=== PATIENT | female | born 1980 | race Hispanic/Latino ===

== ENCOUNTER 2018-05-27 23:34 | Emergency (ER) | payer SELFPAY ==
[2018-05-28 00:40] LABS: Urine Blood 3+ (NEG); Urine Glucose NEGATIVE (NEG); Urine Protein NEGATIVE (NEG); Urine Specific Gravity >1.030 (1.005-1.030)
[2018-05-28] MEDS ORDERED: MORPHINE 4 MG/ML SYR ONE ×2 (00:41→06:03)
[2018-05-28] MEDS ORDERED: ONDANSETRON 4 MG/2 ML VIAL ONE ×2 (00:42→06:03)
[2018-05-28] MEDS ORDERED: NA CHLORIDE 0.9% 1,000 ML ONE (00:42)
[2018-05-28 00:44] LABS: Absolute Lymphocytes (CBC) 0.8 K/uL (0.7-4.9); Absolute Monocytes 0.6 K/uL (0.1-1.3); Absolute Neutrophil 3.8 K/uL (1.8-8.0); Basophils % 0.7 % (0-1.3); Eosinophils % 1.8 % (0-4.4); Lymphocytes % 15.4 % (15.3-44.8); MCH 27.5 pg (27.0-35.0); MCV 83.8 fL (80-100); Monocytes % 10.6 % (3.3-12.3); RBC Red Blood Cell Count 4.54 M/uL (3.86-4.86)
[2018-05-28 00:47] LABS: Protime INR 0.97
[2018-05-28 01:02] LABS: ALT/SGPT 52 U/L (12-78); AST/SGOT 31 U/L (15-37); Albumin 2.9 g/dL (3.4-5.0); Alkaline Phosphatase 119 U/L (45-117); Amylase Level 49 U/L (25-115); BUN Blood Urea Nitrogen 15 mg/dL (7-18); Bicarbonate 22 mmol/L (21-32); Bilirubin Direct < 0.1 mg/dL (0-0.2); Bilirubin Total 0.3 mg/dL (0.2-1.0); CKMB Creatine Kinase MB 1.5 ng/mL (0.3-3.6); Creatine Phosphokinase 139 U/L (26-192); Glucose Level 119 mg/dL (74-106); Lipase 199 U/L (73-393); Magnesium 1.9 mg/dL (1.8-2.4); NT PRO-BNP 35 pg/mL (<125); Potassium 3.7 mmol/L (3.5-5.1); Protein, Total 6.8 g/dL (6.4-8.2); Sodium Level 143 mmol/L (136-145)
--- NOTE | 2018-05-28 05:29 | EDPHYS ---
Physician Documentation [facility] Name: Rosette Alfaro Age: 38 yrs Sex: Female : 1980 Arrival Date: 05/27/2018 Time: 23:35 Bed 8 Private MD: ED Physician Tommie Kearns HPI: 05/28 00:17 This 38 yrs old Female presents to ER via Ambulatory with complaints of Flank pkl Pain. 00:17 The patient presents with abdominal pain in the right upper quadrant. Onset: The pkl symptoms/episode began/occurred today. The symptoms radiate to the right shoulder. Associated signs and symptoms: none. 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 - Social history:: Smoking status: Patient/guardian denies using tobacco. - Ebola Screening: : Patient negative for fever greater than or equal to 101.5 degrees Fahrenheit, and additional compatible Ebola Virus Disease symptoms Patient denies exposure to infectious person Patient denies travel to an Ebola-affected area in the 21 days before illness onset No symptoms or risks identified at this time. ROS: 05/28 00:17 Eyes: Negative for injury, pain, redness, and discharge, ENT: Negative for injury, pkl pain, and discharge, Neck: Negative for injury, pain, and swelling, Cardiovascular: Negative for chest pain, palpitations, and edema, Respiratory: Negative for shortness of breath, cough, wheezing, and pleuritic chest pain. Abdomen/GI: Positive for abdominal pain, of the right upper quadrant. Back: Negative for acute changes. : Negative for urinary symptoms. MS/extremity: Negative for acute changes. Skin: Negative for rash. Neuro: Negative for altered mental status. Exam: 00:17 Head/Face: Normocephalic, atraumatic. Eyes: Pupils equal round and reactive to light, pkl extra-ocular motions intact. Lids and lashes normal. Conjunctiva and sclera are non-icteric and not injected. Cornea within normal limits. Periorbital areas with no swelling, redness, or edema. ENT: Nares patent. No nasal discharge, no septal abnormalities noted. Tympanic membranes are normal and external auditory canals are clear. Oropharynx with no redness, swelling, or masses, exudates, or evidence of obstruction, uvula midline. Mucous membranes moist. Neck: Trachea midline, no thyromegaly or masses palpated, and no cervical lymphadenopathy. Supple, full range of motion without nuchal rigidity, or vertebral point tenderness. No Meningismus. Chest/axilla: Normal chest wall appearance and motion. Nontender with no deformity. No lesions are appreciated. Cardiovascular: Regular rate and rhythm with a normal S1 and S2. No gallops, murmurs, or rubs. Normal PMI, no JVD. No pulse deficits. Respiratory: Lungs have equal breath sounds bilaterally, clear to auscultation and percussion. No rales, rhonchi or wheezes noted. No increased work of breathing, no retractions or nasal flaring. 00:17 Abdomen/GI: Bowel sounds: normal, Palpation: soft, moderate abdominal tenderness, in the right upper quadrant. 00:17 Back: Exam negative for acute changes. 00:17 : Exam negative for acute changes. 00:17 Musculoskeletal/extremity: Exam is negative for acute changes. 00:17 Skin: Exam negative for rash. 00:17 Neuro: Orientation: is normal, Mentation: is normal, Cranial nerves: grossly normal, Motor: is normal. Vital Signs: 05/27 23:56 BP 149 / 71; Pulse 85; Resp 20; Temp 98.1; Pulse Ox 98% ; Weight 122.47 kg; Height 5 bp ft. 1 in. (154.94 cm); 05/28 01:00 BP 132 / 67; Pulse 82; Resp 14; Pulse Ox 97% ; bp 02:00 BP 134 / 73; Pulse 83; Resp 14; Pulse Ox 94% ; bp 04:00 BP 118 / 70; Pulse 74; Resp 14; Pulse Ox 95% ; bp 05/27 23:56 Body Mass Index 51.02 (122.47 kg, 154.94 cm) bp MDM: 05/27 23:54 Patient medically screened. pkl 05/28 05:27 Data reviewed: vital signs, nurses notes, lab test result(s), EKG, radiologic studies, pkl CT scan, plain films. 05:29 Patient medically screened. pkl 05/27 23:58 Order name: Urine Dipstick--Ancillary (enter results); Complete Time: 00:48 ms 05/27 23:58 Order name: Urine --Ancillary (enter results); Complete Time: 00:48 ms 05/28 00:10 Order name: Basic Metabolic Panel; Complete Time: 01:02 bp 05/28 00:10 Order name: CBC with Diff; Complete Time: 00:48 bp 05/28 00:10 Order name: Ckmb; Complete Time: 01:02 bp 05/28 00:10 Order name: CPK; Complete Time: 01:02 bp 05/28 00:10 Order name: LFT's; Complete Time: 01:02 bp 05/28 00:10 Order name: Magnesium; Complete Time: 01:02 bp 05/28 00:10 Order name: NT PRO-BNP; Complete Time: 01:02 bp 05/28 00:10 Order name: PT-INR; Complete Time: 00:51 bp 05/28 00:10 Order name: Ptt, Activated; Complete Time: 00:51 bp 05/28 00:10 Order name: Troponin (emerg Dept Use Only); Complete Time: 01:31 bp 05/28 00:10 Order name: Amylase, Serum; Complete Time: 01:02 bp 05/28 00:10 Order name: Lipase; Complete Time: 01:02 bp 05/28 00:10 Order name: Urine Test (obtain specimen); Complete Time: 00:11 bp 05/28 00:10 Order name: XRAY Chest (1 view) bp 05/28 00:10 Order name: EKG; Complete Time: 00:11 bp 05/28 00:10 Order name: Cardiac monitoring; Complete Time: 00:10 bp 05/28 00:10 Order name: EKG - Nurse/Tech; Complete Time: 00:30 bp 05/28 00:10 Order name: IV Saline Lock; Complete Time: 00:30 bp 05/28 00:10 Order name: Labs collected and sent; Complete Time: 00:30 bp 05/28 00:10 Order name: O2 Per Protocol; Complete Time: 00:10 bp 05/28 00:10 Order name: O2 Sat Monitoring; Complete Time: 00:11 bp 05/28 00:10 Order name: Urine Dipstick-Ancillary (obtain specimen); Complete Time: 00:11 bp 05/28 01:04 Order name: CT Abd/Pelvis - W/Contrast pkl Administered Medications: 00:43 Drug: NS 0.9% 1000 ml Route: IV; Rate: 125 ml/hr; Site: right forearm; bp 06:07 Follow up: IV Status: Completed infusion; IV Intake: 1000ml bp 00:43 Drug: morphine 4 mg Route: IVP; Site: right forearm; bp 01:49 Follow up: Response: Pain is decreased bp 00:43 Drug: Zofran 4 mg Route: IVP; Site: right forearm; bp 01:49 Follow up: Response: No adverse reaction bp 05:45 Drug: morphine 4 mg Route: IVP; Site: right forearm; bp 06:06 Follow up: Response: No adverse reaction; Pain is decreased bp 05:45 Drug: Zofran 4 mg Route: IVP; Site: right forearm; bp 06:06 Follow up: Response: No adverse reaction; Pain is decreased bp Disposition: 05/28/18 05:29 Discharged to Home. Impression: Chest pain. Right upper quadrant pain. - Condition is Stable. - Prescriptions for Ultram 50 mg Oral Tablet - take 1 tablet by ORAL route every 8 hours As needed; 30 tablet. - Work release form, Medication Reconciliation Form, Thank You Letter, Antibiotic Education, Prescription Opioid Use form. - Follow up: Private Physician; When: 2 - 3 days; Reason: Re-evaluation by your physician. - Problem is new. - Symptoms have improved. Signatures: Dispatcher [employer] EDTommie Tobias MD MD pkl Oren Garcia, RN RN bp Corrections: (The following items were deleted from the chart) 06:09 05:29 05/28/2018 05:29 Discharged to Home. Impression: Chest pain. Right upper quadrant bp pain. Condition is Stable. Forms are Medication Reconciliation Form, Thank You Letter, Antibiotic Education, Prescription Opioid Use. Follow up: Private Physician; When: 2 - 3 days; Reason: Re-evaluation by your physician. Problem is new. Symptoms have improved. pkl
--- NOTE | 2018-05-28 05:29 | ER ---
Nurse's Notes [facility] Name: Rosette Alfaro Age: 38 yrs Sex: Female : 1980 Arrival Date: 05/27/2018 Time: 23:35 Bed 8 Private MD: Diagnosis: Chest pain. Right upper quadrant pain Presentation: 05/27 23:50 Presenting complaint: Patient states: I HAVE THIS PAIN UNDER MY RIGHT BREAST. bp Transition of care: patient was not received from another setting of care. Onset of symptoms was May 27, 2018 at 15:00. Risk Assessment: Do you want to hurt yourself or someone else? Patient reports no desire to harm self or others. Initial Sepsis Screen: Does the patient meet any 2 criteria? No. Patient's initial sepsis screen is negative. Does the patient have a suspected source of infection? No. Patient's initial sepsis screen is negative. Care prior to arrival: None. 23:50 Method Of Arrival: Ambulatory bp 23:50 Acuity: BIGG 3 bp Triage Assessment: 23:56 General: Appears in no apparent distress. uncomfortable, obese, Behavior is calm, bp cooperative, appropriate for age. Pain: Complains of pain in right breast. 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 - Social history:: Smoking status: Patient/guardian denies using tobacco. - Ebola Screening: : Patient negative for fever greater than or equal to 101.5 degrees Fahrenheit, and additional compatible Ebola Virus Disease symptoms Patient denies exposure to infectious person Patient denies travel to an Ebola-affected area in the 21 days before illness onset No symptoms or risks identified at this time. Screenin:57 Abuse screen: Denies threats or abuse. Denies injuries from another. Nutritional bp screening: No deficits noted. Tuberculosis screening: No symptoms or risk factors identified. Fall Risk None identified. Assessment: 23:58 General: Appears in no apparent distress. uncomfortable, Behavior is calm, cooperative, bp appropriate for age. Pain: Complains of pain in right breast. Neuro: Level of Consciousness is awake, alert, obeys commands, Oriented to person, place, time, situation, Appropriate for age. Cardiovascular: No deficits noted. Respiratory: Airway is patent Respiratory effort is even, unlabored, Respiratory pattern is regular, symmetrical. GI: No signs and/or symptoms were reported involving the gastrointestinal system. : No signs and/or symptoms were reported regarding the genitourinary system. EENT: No deficits noted. Derm: No deficits noted. Musculoskeletal: Circulation, motion, and sensation intact. Range of motion: intact in all extremities. 05/28 01:00 Reassessment: ALL CURRENT ORDERS IN PROCESS, LAB RESULTS PENDING. VS STABLE ON MONITOR. bp 03:00 Reassessment: PT RESTING QUIETLY, RESULTS PENDING FOR DISPO. bp 06:00 Reassessment: PT D/C HOME AMBULATORY WITH FAMILY, DX WITH NONSPECIFIC CP. bp Vital Signs: 05/27 23:56 BP 149 / 71; Pulse 85; Resp 20; Temp 98.1; Pulse Ox 98% ; Weight 122.47 kg; Height 5 bp ft. 1 in. (154.94 cm); 05/28 01:00 BP 132 / 67; Pulse 82; Resp 14; Pulse Ox 97% ; bp 02:00 BP 134 / 73; Pulse 83; Resp 14; Pulse Ox 94% ; bp 04:00 BP 118 / 70; Pulse 74; Resp 14; Pulse Ox 95% ; bp 05/27 23:56 Body Mass Index 51.02 (122.47 kg, 154.94 cm) bp ED Course: 05/27 23:35 Patient arrived in ED. es 23:49 Oren Garcia, RN is Primary Nurse. bp 23:50 Triage completed. bp 23:53 Tommie Kearns MD is Attending Physician. pkl 23:56 Arm band placed on. bp 23:57 Patient has correct armband on for positive identification. Bed in low position. Call bp light in reach. Side rails up X2. Adult w/ patient. 05/28 00:02 Tommie Kearns MD is Attending Physician. pkl 00:30 Inserted saline lock: 22 gauge in right forearm, using aseptic technique. Blood bp collected. 00:32 X-ray completed. Portable x-ray completed in exam room. Patient tolerated procedure kw well. 00:33 XRAY Chest (1 view) In Process Unspecified. EDMS 03:[address] via wheelchair. kw1 03:27 CT completed. Patient tolerated procedure well. Patient moved back from CT. kw1 03:30 CT Abd/Pelvis - W/Contrast In Process Unspecified. EDMS 06:08 No provider procedures requiring assistance completed. IV discontinued, intact, bp bleeding controlled, No redness/swelling at site. Pressure dressing applied. Administered Medications: 00:43 Drug: NS 0.9% 1000 ml Route: IV; Rate: 125 ml/hr; Site: right forearm; bp 06:07 Follow up: IV Status: Completed infusion; IV Intake: 1000ml bp 00:43 Drug: morphine 4 mg Route: IVP; Site: right forearm; bp 01:49 Follow up: Response: Pain is decreased bp 00:43 Drug: Zofran 4 mg Route: IVP; Site: right forearm; bp 01:49 Follow up: Response: No adverse reaction bp 05:45 Drug: morphine 4 mg Route: IVP; Site: right forearm; bp 06:06 Follow up: Response: No adverse reaction; Pain is decreased bp 05:45 Drug: Zofran 4 mg Route: IVP; Site: right forearm; bp 06:06 Follow up: Response: No adverse reaction; Pain is decreased bp Intake: 06:07 IV: 1000ml; Total: 1000ml. bp Outcome: 05:29 Discharge ordered by . pkjose d 06:08 Discharged to home ambulatory, with family. bp 06:08 Condition: stable 06:08 Discharge instructions given to patient, Instructed on discharge instructions, follow up and referral plans. medication usage, Demonstrated understanding of instructions, follow-up care, medications, Prescriptions given X 1. 06:09 Patient left the ED. bp Signatures: Dispatcher [employer] Tommie Rain MD MD pkl Salyer, Edna es Whitley, Kimberlee kw Peltier, Brian, RN RN bp Yvonne Banda kwHailey
--- NOTE | 2018-05-28 08:18 | EKG ---
Test Date: 2018-05-28 Test Time: 00:32:21 Stained Glass Joiner: LENI MEASUREMENT RESULTS: Intervals: Rate: 81 ME: 134 QRSD: 78 QT: 360 QTc: 418 [place]: P: 24 ME: 134 QRS: 9 T: 7 INTERPRETIVE STATEMENTS: Normal sinus rhythm Normal ECG No previous ECG available for comparison Electronically Signed On 05-28-18 08:17:56 CDT by Cirilo Spring
--- NOTE | 2018-05-28 09:03 | RAD REPORT ---
EXAM DESCRIPTION: Neva Single View05/28/2018 12:35 am CLINICAL HISTORY: Chest pain COMPARISON: 2008 FINDINGS: The lungs appear clear of acute infiltrate. The heart is mildly enlarged IMPRESSION: No acute abnormalities displayed
--- NOTE | 2018-05-28 09:03 | RAD REPORT ---
EXAM DESCRIPTION: CT - Abdomen Pelvis W Contrast - 05/28/2018 6:50 am CLINICAL HISTORY: Abdominal pain surgery Caesarean section COMPARISON: none. TECHNIQUE: Computed axial tomography of the abdomen pelvis was obtained. 100 cc Isovue-300 was admin istered intravenously. Oral contrast was not requested which limits evaluation of bowel.A preliminary report was generated by virtual radiologic reviewed prior to this dictation All CT scans are performed using dose optimization technique as appropriate and may include automated exposure control or mA/KV adjustment according to patient size. FINDINGS: The liver, spleen, pancreas, adrenal and kidneys appear unremarkable. Diverticula stem from the colon without evidence of diverticulitis. The appendix is not visualized A tiny umbilical hernia is present. An adnexal mass is not seen. Spondylolysis involves L5 IMPRESSION: No acute abnormality is displayed.
== END 2018-05-28 06:09 | disposition home or self-care (01) ==
LOC: ER 23:34
DX: R07.9 Chest pain, unspecified (principal)
CPT/HCPCS: 36415; 71045; 74177; 80048; 80076; 81003; 81025; 82150; 82550; 82553; 83690; 83735; 83880; 84484; 85025; 85610; 85730; 93005; 96361; 96374; 96375; 99284; J2405; J7030; Q9967

== ENCOUNTER 2018-06-12 10:17 | Inpatient (IN) | payer SELFPAY ==
--- NOTE | 2018-06-12 13:33 | RAD REPORT ---
EXAM DESCRIPTION: USEXTREMITY VENOUS UNI LTD06/12/2018 1:25 pm CLINICAL HISTORY: Right leg pain COMPARISON: None. FINDINGS: Right common femoral, superficial femoral, and popliteal tibial veins are compressible and demonstrate augmentation. Doppler demonstrates good flow. Echogenic material consistent with thrombus is present within the right posterior tibial vein. The ve in is not compressible IMPRESSION: Acute thrombus within the right posterior tibial vein
[2018-06-12 14:23] LABS: Absolute Lymphocytes (CBC) 0.5 K/uL (0.7-4.9); Absolute Monocytes 0.3 K/uL (0.1-1.3); Basophils % 3.7 % (0-1.3); Eosinophils % 2.6 % (0-4.4); Hematocrit 40.6 % (36.0-45.0); Lymphocytes % 12.5 % (15.3-44.8); MCH 27.7 pg (27.0-35.0); MCV 83.1 fL (80-100); MPV 9.7 fL (7.6-11.3); Monocytes % 8.4 % (3.3-12.3); RBC Red Blood Cell Count 4.88 M/uL (3.86-4.86)
[2018-06-12 14:38] LABS: ALT/SGPT 41 U/L (12-78); AST/SGOT 27 U/L (15-37); Albumin 3.4 g/dL (3.4-5.0); Alkaline Phosphatase 103 U/L (45-117); BUN Blood Urea Nitrogen 12 mg/dL (7-18); Bicarbonate 25 mmol/L (21-32); Bilirubin Total 0.4 mg/dL (0.2-1.0); Glucose Level 99 mg/dL (74-106); Potassium 3.7 mmol/L (3.5-5.1); Protein, Total 7.6 g/dL (6.4-8.2); Sodium Level 143 mmol/L (136-145)
--- NOTE | 2018-06-12 15:17 | EDPHYS ---
Physician Documentation [facility] Name: Rosette Alfaro Age: 38 yrs Sex: Female : 1980 Arrival Date: 06/12/2018 Time: 10:20 Bed 17 Private MD: None, None ED Physician Chao Parker HPI: 06/12 12:42 This 38 yrs old Female presents to ER via Ambulatory with complaints of Leg jmm Pain. 12:42 The patient presents with pain. The complaints affect the right calf and right jmm Achilles. Onset: The symptoms/episode began/occurred gradually, 2 day(s) ago. 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 Patient takes depo shot for brith control. 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 - Social history:: Smoking status: Patient/guardian denies using tobacco. - Ebola Screening: : Patient denies exposure to infectious person Patient denies travel to an Ebola-affected area in the 21 days before illness onset. ROS: 12:42 Constitutional: Negative for fever, chills, and weight loss, Cardiovascular: Negative jmm for chest pain, palpitations, and edema, Respiratory: Negative for shortness of breath, cough, wheezing, and pleuritic chest pain, Back: Negative for injury and pain. 12:42 MS/extremity: Positive for pain, swelling. 12:42 All other systems are negative. Exam: 12:42 Head/Face: atraumatic. Chest/axilla: Normal chest wall appearance and motion. jmm Cardiovascular: Regular rate and rhythm. No edema appreciated Respiratory: Normal respirations, no respiratory distress appreciated 12:42 Constitutional: The patient appears alert, awake, anxious, uncomfortable. 12:42 Abdomen/GI: Inspection: abdomen appears normal. 12:42 Back: ROM is normal. 12:42 Musculoskeletal/extremity: Right calf TTP, full distal dorsalis pulse, compartments soft, NVI. 12:42 Skin: Appearance: Color: normal in color. 12:42 Neuro: Orientation: is normal, Mentation: is normal, Memory: is normal. 12:42 Psych: Behavior/mood is pleasant, cooperative. Vital Signs: 10:29 BP 144 / 88; Pulse 80; Resp 16; Temp 98.2(O); Pulse Ox 98% on R/A; Weight 118.84 kg; ss Height 5 ft. 1 in. (154.94 cm); Pain 8/10; 12:50 BP 127 / 66; Pulse 66; Resp 17; Pulse Ox 98% on R/A; Pain 8/10; rb1 13:50 BP 122 / 67; Pulse 66; Resp 16; Pulse Ox 99% on R/A; rb1 14:50 BP 134 / 82; Pulse 64; Resp 16; Pulse Ox 98% on R/A; rb1 15:50 BP 118 / 72; Pulse 74; Resp 17; Pulse Ox 97% ; rb1 16:45 BP 143 / 85; Pulse 69; Resp 18; Pulse Ox 96% ; rb1 17:45 BP 148 / 68; Pulse 75; Resp 16; Pulse Ox 96% on R/A; rb1 10:29 Body Mass Index 49.50 (118.84 kg, 154.94 cm) ss MDM: 12:42 Patient medically screened. geovani 15:14 Data reviewed: vital signs, nurses notes, radiologic studies, ultrasound. Counseling: I geovani had a detailed discussion with the patient and/or guardian regarding: the historical points, exam findings, and any diagnostic results supporting the discharge/admit diagnosis, lab results, radiology results, the need for further work-up and treatment in the hospital. ED course: I discussed the patient with Dr. Gupta whom accepted admission. 06/12 13:35 Order name: CBC with Diff; Complete Time: 16:45 [facility] 06/12 13:35 Order name: CMP; Complete Time: 14:46 [facility] 06/12 12:46 Order name: US Extremity Venous Unilateral Ltd; Complete Time: 13:34 [facility] 06/12 13:35 Order name: Ptt, Activated; Complete Time: 14:46 [facility] 06/12 13:35 Order name: PT-INR; Complete Time: 14:46 [facility] 06/12 14:24 Order name: CBC Smear Scan; Complete Time: 16:45 EDMD 06/12 13:35 Order name: Saline Lock; Complete Time: 14:16 [facility] Administered Medications: 15:26 Drug: Tylenol 1000 mg Route: PO; tl3 16:00 Follow up: Response: No adverse reaction; Pain is decreased rb1 17:45 Drug: Lovenox 1 mg/kg {Note: 118mg.} Route: Sub-Q; Site: left lower abdomen; dm5 18:31 Follow up: Response: No adverse reaction dm5 Disposition: 06/12/18 15:16 Hospitalization ordered by Lisa Gupta for Observation. Preliminary diagnosis is Acute embolism and thrombosis of other specified deep vein of right lower extremity. - Bed requested for Telemetry/MedSurg (observation). - Status is Observation. rb1 - Condition is Stable. - Problem is new. - Symptoms are unchanged. UTI on Admission? No Addendum: 06/14/2018 11:28 Co-signature as Attending Physician, Chao Parker MD I agree with the assessment and w a plan of care. Signatures: Dispatcher [employer] [facility] Sulema Thomas, RN RN dm5 Fito Owens PA PA [facility] Deborah Saldivar RN RN Jailyn Cross, RN RN rb1 Chao Parker MD MD wa Lowrey, Tammy RN RN tl3 Naila Jarrell Corrections: (The following items were deleted from the chart) 06/12 13:33 13:21 This 38 yrs old Female presents to ER via Ambulatory with complaints of [facility] Leg Pain. [facility] 17:35 15:16 Hospitalization Ordered by Lisa Gupta MD for Observation. Preliminary eb diagnosis is Acute embolism and thrombosis of other specified deep vein of right lower extremity. Bed requested for Telemetry/MedSurg (observation). Status is Observation. Condition is Stable. Problem is new. Symptoms are unchanged. UTI on Admission? No. jmm 18:07 17:35 06/12/2018 15:16 Hospitalization Ordered by Lisa Gupta MD for Observation. rb1 Preliminary diagnosis is Acute embolism and thrombosis of other specified deep vein of right lower extremity. Bed requested for Telemetry/MedSurg (observation). Status is Observation. Condition is Stable. Problem is new. Symptoms are unchanged. UTI on Admission? No. 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 Patient states she works. geovani
--- NOTE | 2018-06-12 15:17 | ER ---
Nurse's Notes [facility] Name: Rosette Alfrao Age: 38 yrs Sex: Female : 1980 Arrival Date: 06/12/2018 Time: 10:20 Bed 17 Private MD: None, None Diagnosis: Acute embolism and thrombosis of other specified deep vein of right lower extremity Presentation: 06/12 10:30 Presenting complaint: Patient states: pain to R lower leg and small area of swelling ss that began 2 days ago and has been getting progressively worse. Pt is concerned for a blood clot. Transition of care: patient was not received from another setting of care. Onset of symptoms was June 10, 2018. Risk Assessment: Do you want to hurt yourself or someone else? Patient reports no desire to harm self or others. Initial Sepsis Screen: Does the patient meet any 2 criteria? No. Patient's initial sepsis screen is negative. Does the patient have a suspected source of infection? No. Patient's initial sepsis screen is negative. Care prior to arrival: None. 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 - Social history:: Smoking status: Patient/guardian denies using tobacco. - Ebola Screening: : Patient denies exposure to infectious person Patient denies travel to an Ebola-affected area in the 21 days before illness onset. Screenin:40 Abuse screen: Denies threats or abuse. Nutritional screening: No deficits noted. rb1 Tuberculosis screening: No symptoms or risk factors identified. Fall Risk None identified. Assessment: 12:40 General: Appears uncomfortable, obese, Behavior is calm, cooperative, Denies fever. rb1 Pain: Complains of pain in right ziegler Pain currently is 8 out of 10 on a pain scale. Pain began 2-3 days ago. Neuro: Level of Consciousness is awake, alert, obeys commands, Oriented to person, place, time, situation. Cardiovascular: Capillary refill < 3 seconds is brisk in bilateral fingers. Respiratory: Airway is patent Respiratory effort is even, unlabored, Respiratory pattern is regular, symmetrical. GI: No signs and/or symptoms were reported involving the gastrointestinal system. : No signs and/or symptoms were reported regarding the genitourinary system. Derm: Skin is dry, Skin is normal, Skin temperature is warm. Musculoskeletal: Range of motion: intact in all extremities. 13:40 Reassessment: Patient appears in no apparent distress at this time. No changes from rb1 previously documented assessment. 14:40 Reassessment: Patient appears in no apparent distress at this time. Patient and/or rb1 family updated on plan of care and expected duration. Pain level reassessed. Patient is alert, oriented x 3, equal unlabored respirations, skin warm/dry/pink. Family at bedside. 15:40 Reassessment: Patient appears in no apparent distress at this time. No changes from rb1 previously documented assessment. 16:40 Reassessment: Patient appears in no apparent distress at this time. Patient and/or rb1 family updated on plan of care and expected duration. Pain level reassessed. Patient is alert, oriented x 3, equal unlabored respirations, skin warm/dry/pink. Family at bedside. 17:40 Reassessment: Patient appears in no apparent distress at this time. No changes from rb1 previously documented assessment. Pt. updated on POC. 17:53 Reassessment: Called report to WAYNE Moser. Information from the SBAR was given. All rb1 questions asked and answered. Vital Signs: 10:29 BP 144 / 88; Pulse 80; Resp 16; Temp 98.2(O); Pulse Ox 98% on R/A; Weight 118.84 kg; ss Height 5 ft. 1 in. (154.94 cm); Pain 8/10; 12:50 BP 127 / 66; Pulse 66; Resp 17; Pulse Ox 98% on R/A; Pain 8/10; rb1 13:50 BP 122 / 67; Pulse 66; Resp 16; Pulse Ox 99% on R/A; rb1 14:50 BP 134 / 82; Pulse 64; Resp 16; Pulse Ox 98% on R/A; rb1 15:50 BP 118 / 72; Pulse 74; Resp 17; Pulse Ox 97% ; rb1 16:45 BP 143 / 85; Pulse 69; Resp 18; Pulse Ox 96% ; rb1 17:45 BP 148 / 68; Pulse 75; Resp 16; Pulse Ox 96% on R/A; rb1 10:29 Body Mass Index 49.50 (118.84 kg, 154.94 cm) ED Course: 10:20 Patient arrived in ED. sb2 10:20 None, None is Private Physician. sb2 10:29 Arm band placed on right wrist. ss 10:31 Triage completed. 12:37 Fito Owens PA is PHCP. m 12:37 Chao Parker MD is Attending Physician. jmm 12:40 Patient has correct armband on for positive identification. Placed in gown. Bed in low rb1 position. Call light in reach. Side rails up X 1. Pulse ox on. NIBP on. 12:43 Jailyn Cross, WAYNE is Primary Nurse. rb1 13:00 Warm blanket given. Pillow given. jp3 13:23 US Extremity Venous Unilateral Ltd In Process Unspecified. EDMS 13:23 Ultrasound completed. Patient tolerated well. aa4 14:05 Missed attempt(s): 20 gauge in right antecubital area. Bleeding controlled, band aid dh3 applied, catheter tip intact. 14:09 Initial lab(s) drawn, by de, sent to lab. Inserted saline lock: 20 gauge in left dh3 antecubital area, using aseptic technique. Blood collected. 15:15 Lisa Gupta MD is Hospitalizing Provider. [facility] 18:07 No provider procedures requiring assistance completed. Patient admitted, IV remains in rb1 place. Administered Medications: 15:26 Drug: Tylenol 1000 mg Route: PO; tl3 16:00 Follow up: Response: No adverse reaction; Pain is decreased rb1 17:45 Drug: Lovenox 1 mg/kg {Note: 118mg.} Route: Sub-Q; Site: left lower abdomen; dm5 18:31 Follow up: Response: No adverse reaction dm5 Outcome: 15:16 Decision to Hospitalize by Provider. jmm 18:07 Patient left the ED. rb1 18:07 Admitted to Med/surg accompanied by tech, family with patient, via wheelchair, room rb1 206, with chart, Report called to WAYNE Moser 18:07 Condition: stable 18:07 Instructed on the need for admit. Signatures: Dispatcher [employer] Sulema Holland, RN RN dm5 Fito Owens PA PA jmm Frazier, Amanda aa4 Deborah Saldivar, RN RN ss Jailyn Cross, RN RN rb1 Rose Mary Dodge 3 Debi Law sb2 Bernadine Swan RN RN tl3 Saulo Bynum jp3
[2018-06-12] MEDS ORDERED: ACETAMINOPHEN 500 MG TAB ONE (15:19)
[2018-06-12] MEDS ORDERED: ENOXAPARIN 80 MG/0.8 ML SQ ONE (15:20)
[2018-06-12] MEDS ORDERED: ENOXAPARIN 40 MG/0.4 ML SQ ONE (15:20)
[2018-06-12 16:40] LABS: Blood Morphology Comment NOT SEEN (NOT SEEN); Platelet Estimate ADEQ; Urine White Blood Cell Casts OK
[2018-06-12] MEDS ORDERED: ONDANSETRON 4 MG/2 ML VIAL IV PRN (18:14)
[2018-06-12 18:56] LABS: Absolute Lymphocytes (CBC) 0.7 K/uL (0.7-4.9); Absolute Monocytes 0.5 K/uL (0.1-1.3); Basophils % 0.9 % (0-1.3); Eosinophils % 2.5 % (0-4.4); Hematocrit 37.6 % (36.0-45.0); Lymphocytes % 16.4 % (15.3-44.8); MCH 27.8 pg (27.0-35.0); MCV 83.8 fL (80-100); MPV 9.6 fL (7.6-11.3); Monocytes % 11.1 % (3.3-12.3); RBC Red Blood Cell Count 4.49 M/uL (3.86-4.86)
[2018-06-12 19:16] LABS: ALT/SGPT 36 U/L (12-78); AST/SGOT 24 U/L (15-37); Albumin 3.1 g/dL (3.4-5.0); Alkaline Phosphatase 88 U/L (45-117); BUN Blood Urea Nitrogen 11 mg/dL (7-18); Bicarbonate 24 mmol/L (21-32); Bilirubin Total 0.4 mg/dL (0.2-1.0); Glucose Level 117 mg/dL (74-106); Magnesium 2.2 mg/dL (1.8-2.4); Potassium 3.6 mmol/L (3.5-5.1); Protein, Total 7.1 g/dL (6.4-8.2); Sodium Level 143 mmol/L (136-145)
[2018-06-12 21:30] LABS: Urine Appearance CLEAR; Urine Blood NEGATIVE (NEG); Urine Color DK YELLOW; Urine Glucose NEGATIVE (NEG); Urine Protein TRACE (NEG); Urine Specific Gravity >=1.030 (1.005-1.030)
[2018-06-12] MEDS: ACETAMINOPHEN 500 MG TAB PO PRN (21:31)
[2018-06-12 21:58] LABS: Urine Bilirubin NEGATIVE (NEG); Urine Microscopic Reflex ORDER UMIC
[2018-06-12 21:59] LABS: Urine Bacteria <20 /HPF (<20); Urine Culture Reflex Order NOT NEEDED; Urine Mucus 1+ /HPF (NONE SEEN); Urine RBC <5 /HPF (NONE SEEN)
--- NOTE | 2018-06-12 22:45 | HP ---
Date of Admission: 06/12/2018 Reason For Admission: Right lower extremity swelling and pain. 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 The patient reported initially the pain and swelling happened today. In the ER, she was evaluated, lower extremity Doppler done and that showed acute thrombus within the right posterior tibial vein. The patient was admitted for anticoagulation. The patient have no primary care physic joaquin neither insurance, so she could not afford to buy Eliquis or Xarelto. She does take Depo-Provera for control. She is not taking any active medication at this point. Review of Systems: Otherwise, as below. Past Medical History: Treatment for ITP in remission. Past Surgical History: Right knee surgery, , appendectomy. Allergies: NONE. Medication: None. Social History: She is single. She have 2 kids. She does work at [employer]. Does not drink, smoke, o r use any drugs. Family History: Both father and mother are alive and healthy. No family history of thrombosis. Review of Systems: Denies any fever, chills, night sweats, dizziness, lightheadedness, headache, blurred vision. There is no chest pain or palpitations. No cough, sputum, shortness of breath. No nausea, vomiting, abdom inal pain, change in bowel movement, diarrhea, constipation, dysuria, frequency, urgency, hematuria. There was no history of depression, anxiety, seizure or stroke. Physical Examination: Vital Signs: Blood pressure is 122/77, respiratory rate 16, pulse 66, temperature 98.2, saturating 9 8% on room air. General: The patient is currently alert, oriented x3. Does not look in any distress. HEENT: Atraumatic, normocephalic. PERRLA. Oral mucosa is moist. Neck: Supple. No JVD. No carotid bruits. Chest: Clear to auscultation. Good air entry. Heart: Regular rate and rhythm. No gallop or murmur. Abdomen: Soft, nontender. No masses. No hepatosplenomegaly. Positive bowel sounds. Extremities: No clubbing, no cyanosis. Right lower extremity with swelling and tenderness to palpat ion. There is no erythema or warmth. Neurological Exam: Grossly intact. Cranial nerve exam 2 through 12 intact. Normal sensation. Norm al reflexes. Normal muscle strength. Laboratory Data: Today labs, CBC was normal except for white blood cells 4.1. Chemistry within norm al. Doppler as above. Assessment And Plan: A 38-year-old female with history of idiopathic thrombocytopenic purpura, prese nted with right lower extremity swelling and tenderness, found to have acute deep vein thrombosis. 1.Right lower extremity deep vein thrombosis. The patient does not have insurance, so I could not d ischarge her home on Eliquis or Xarelto. The patient admitted for Coumadin and Lovenox bridge until Coumadin is therapeutic. We will need social work consult to provide the patient with some financial assistance for followup with her primary doctor, so she can get her INR checked as outpatient. The patient cannot afford Lovenox injection as well, so she had to stay in the hospital until her Coumadi n is therapeutic. 2.Advised the patient to loose some weight. She understand overweight risk factor for deep vein thr ombosis. Also advised the patient to avoid oral contraceptive as that will increase the risk of thro mbosis. She will need to use protection like condom or intrauterine device. I will not proceed with hypercoagulable panel at this point, as the patient have triggering factor, which is Depo-Provera. IVELISSE Voice ID: [id number]
[2018-06-13] MEDS: ACETAMINOPHEN 500 MG TAB PO PRN ×4 (04:50→19:51)
[2018-06-13 05:44] LABS: Protime INR 1.02
[2018-06-13] MEDS: Enoxaparin 120 MG/0.8 ML SYR SQ SCH ×2 (08:18→20:41)
--- NOTE | 2018-06-13 14:31 | PN ---
Subjective: Currently, the patient lying in bed. She looks comfortable. She did have right lower e xtremity pain. She received Lovenox yesterday and she received her Coumadin this morning. No chest pain. No abdominal pain. No fever or chills. Objective: Current vital signs: Blood pressure 138/80, respiratory rate 18, pulse 84, temperature 9 8.6. General: The patient is alert, oriented x3. Does not look in any distress. HEENT: Atraumatic, normocephalic. PERRLA. Oral mucosa is moist. Neck: Supple. No JVD. No carotid bruits. Chest: Clear to auscultation. Good air entry. Heart: Regular rate and rhythm. S1, S2 normal. No gallop or murmur. Abdomen: Soft, nontender. No masses. No hepatosplenomegaly. Positive bowel sounds. Extremities: No clubbing or cyanosis. Right lower extremity with some swelling, calf tenderness. T here is no edema. Neuro exam: Grossly intact. Laboratory Data: This morning CBC within normal. Chemistry within normal. Assessment And Plan: 1.Right lower extremity deep venous thrombosis, acute. The patient currently on Lovenox 1 mg/kg twi ce a day. She started Coumadin this morning and she will need until INR is therapeutic and then Love nox can be stopped and the patient can be discharged. Social work consult requested to find primary care physician for the patient so she can follow as outpatient and get her PT/INR checked. 2.Overweight. Advised diet and exercise. The patient understand weight can increase risk of thromb osis. 3.Use of contraception. The patient advised to stop Depo-Provera and use alternative methods for co ntraception like condom or IUD, not coated IUD as contraception medication usually increases risk of thrombosis. 4.Discharge plan will depend on when INR is therapeutic and the patient had outpatient followup, which will be arranged through foster care case manager hopefully tomorrow as simón gandara does not have insurance. IVELISSE Voice ID: [id number] Report ID: [id number]
[2018-06-13] MEDS ORDERED: WARFARIN SODIUM 5 MG TAB PO SCH (17:00)
[2018-06-14] MEDS: ACETAMINOPHEN 500 MG TAB PO PRN ×2 (06:00→20:58)
[2018-06-14 07:31] LABS: Protime INR 1.05
[2018-06-14] MEDS: Enoxaparin 120 MG/0.8 ML SYR SQ SCH ×2 (09:00→20:49)
[2018-06-14] MEDS ORDERED: WARFARIN SODIUM 7.5 MG TAB PO SCH (17:00)
--- NOTE | 2018-06-14 19:13 | PN ---
Date of Progress Note: 06/14/2018 Subjective: The patient is seen and examined. Chart reviewed and case discussed with RN. Treatment plan explained. All questions answered. The patient still having any pain and swelling; however, i mproving in her lower extremity. Review of Systems: Negative except as above. Medications: List reviewed. Physical Examination: Vital Signs: Temperature 98, heart rate 79, blood pressure 152/90, respirations 16, O2 99% on room a ir. General: Awake, alert, oriented x3, in some mild distress. Morbidly obese female, BMI 49. CV: S1, S2. No murmurs. Regular rate and rhythm. Peripheral pulses present. Respiratory: Clear to auscultation bilaterally. No wheezing. No stridor. No use of accessory musc les. Gastrointestinal: Abdomen is soft, nontender, nondistended. Positive bowel sounds. Extremities: No clubbing, cyanosis. The patient does have edema of the lower extremities, especiall y on the right with some calf tenderness. Neurologic: Nonfocal. Laboratory Data: test negative. INR 1.05. Assessment And Plan: A 38-year-old female with: 1.Right lower extremity deep venous thrombosis, acute. Continue Lovenox. Adjust Coumadin level. T he patient does not have insurance, no primary care. She will need to be set up with PCP to have her INR checked as an outpatient. 2.Morbid obesity, BMI of 49. Counseled. 3.Use of contraception. The patient advised to stop Depo-Provera as this is risk factor for deep ve nous thrombosis. She understands risks and voiced understanding. 4.History of idiopathic thrombocytopenic purpura, currently in remission. The patient will follow u p with her tableau analyst as an outpatient after discharge. Plan: We will reach out to [facility] for possible samples for newer anticoagulation agent if able t o arrange a 3-month supply. We will discharge on new anticoagulation agent. Otherwise, we will cont inue to monitor INR and adjust Coumadin level and bridge with Lovenox. /SADE Voice ID: [id number] Report ID: [id number]
[2018-06-15 05:14] LABS: Absolute Lymphocytes (CBC) 0.7 K/uL (0.7-4.9); Absolute Monocytes 0.6 K/uL (0.1-1.3); Absolute Neutrophil 1.7 K/uL (1.8-8.0); Basophils % 0.5 % (0-1.3); Hematocrit 37.8 % (36.0-45.0); Lymphocytes % 23.2 % (15.3-44.8); MCV 82.7 fL (80-100); MPV 10.1 fL (7.6-11.3); Monocytes % 18.1 % (3.3-12.3); RBC Red Blood Cell Count 4.58 M/uL (3.86-4.86)
[2018-06-15 05:26] LABS: Protime INR 1.11
[2018-06-15 05:34] LABS: BUN Blood Urea Nitrogen 9 mg/dL (7-18); Bicarbonate 25 mmol/L (21-32); Glucose Level 88 mg/dL (74-106); Potassium 3.6 mmol/L (3.5-5.1); Sodium Level 141 mmol/L (136-145)
[2018-06-15 05:57] LABS: Blood Morphology Comment NOTED (NOT SEEN); Platelet Estimate ADEQ
[2018-06-15 05:58] LABS: Burr Cells 1+; Ovalocytes 3+
[2018-06-15] MEDS: Enoxaparin 120 MG/0.8 ML SYR SQ SCH (10:40)
[2018-06-15] MEDS: ACETAMINOPHEN 500 MG TAB PO PRN (13:05)
--- NOTE | 2018-06-16 06:58 | DS ---
Date of Discharge: 06/15/2018 Discharge Diagnoses: 1. Right lower extremity deep venous thrombosis, provoked. 2. Morbid obesity, BMI 49. 3. History of immune thrombocytopenic purpura in remission. Hospital Course: The patient is a 38-year-old female, comes into the hospital for right lower extremity swelling and pain. The patient was found to have a DVT in the right posterior tibial vein, which was acute. The patient was started on anticoagulation with Lovenox and bridging with Coumadin. The patient was uninsured. Her etiology of the DVT likely is related to the Depo- Provera that she uses for control. She was advised to stop the Depo- Provera as this is a risk factor. She will need to be on anticoagulation for minimum of 3 months and is to have follow up with her pluck separator, whom she sees for ITP for further workup. She does not require a hypercoagulable workup as this was a provoked DVT. The patient was recommended to lose weight as morbid obesity is also a risk factor for DVT. The patient will need to use other form of protection such as condom or intrauterine device. She will need to stay away from Depo-Provera and other forms of estrogen based contraceptives. The patient was then able to be provided with coupon supply of Eliquis, free 1 month supply, and then after having form filled out for patient assistance, the patient will have Eliquis provided to her for 3 months free of cost. The patient was agreeable as this is easier for her as she is unable to afford a primary care physician and to have INR checked on a weekly to daily basis while she is being bridged with Coumadin. She is also unable to afford Lovenox shots while her INR becomes therapeutic. The patient's pain resolved. Her swelling improved significantly. She was able to ambulate without any difficulty. The patient was then discharged home in a stable condition. Activity: As tolerated. Medications: As per medication reconciliation list. She will start on Eliquis 10 mg p.o. b.i.d. for 7 days, then switch to 5 mg p.o. b.i.d. for 3 months. Followup: Establish care with PCP in 2 days. Follow up with pluck separator at [facility] as scheduled within 4 weeks. Return to ER for worsening condition. Diet: Calorie restricted. Total time spent discharging the patient was 32 minutes. Physical Examination: General: Awake, alert, oriented, no acute distress. CV: S1, S2. No murmurs. Respiratory: Moving air well bilaterally. Gastrointestinal: Abdomen is soft, nontender, nondistended. Positive bowel sounds. Extremities: No clubbing, cyanosis. Some mild edema in the right lower extremity. Neurologic: Nonfocal. SA/MODChris Voice ID: [id number] Report ID: [id number] [facility]
== END 2018-06-15 17:02 | disposition home or self-care (01) | DRG 300 ==
LOC: ER 10:17 → ERHOLD 15:59 → 2ND 17:58 → OBSVTOIN 06-15 10:14
PROVIDERS: ADMIT Internal Medicine; ATTEND Family Medicine
DX: I82.441 Acute embolism and thrombosis of right tibial vein (principal); Z68.42 Body mass index [BMI] 45.0-49.9, adult; E66.01 Morbid (severe) obesity due to excess calories; Z79.3 Long term (current) use of hormonal contraceptives
CPT/HCPCS: 36415; 80048; 80053; 81003; 81015; 83735; 84703; 85025; 85610; 85730; 93971; 94760; 96372; 99285; G0378; J1650; J2405

== ENCOUNTER 2018-10-23 15:18 | Emergency (ER) | payer SELFPAY ==
--- NOTE | 2018-10-23 19:47 | ER ---
Nurse's Notes [facility] Name: Rosette Alfaro Age: 38 yrs Sex: Female : 1980 Arrival Date: 10/23/2018 Time: 15:21 Bed Waiting Private MD: None, None Diagnosis: Presentation: 10/23 16:38 Presenting complaint: Patient states: Rash all over body that started yesterday after aj eating lunch. Taking benadryl at home, reports rash returns after benadryl. Transition of care: patient was not received from another setting of care. Onset of symptoms was October 22, 2018. Risk Assessment: Do you want to hurt yourself or someone else? Patient reports no desire to harm self or others. Initial Sepsis Screen: Does the patient meet any 2 criteria? No. Patient's initial sepsis screen is negative. Does the patient have a suspected source of infection? No. Patient's initial sepsis screen is negative. Care prior to arrival: None. 16:38 Method Of Arrival: Ambulatory 16:38 Acuity: BIGG 5 Triage Assessment: 16:40 General: Appears in no apparent distress. comfortable, Behavior is calm, cooperative, aj appropriate for age. Pain: Denies pain. Neuro: Level of Consciousness is awake, alert, obeys commands, Oriented to person, place, time, situation, Appropriate for age. Respiratory: Airway is patent Respiratory effort is even, unlabored, Respiratory pattern is regular, symmetrical. Derm: Skin is intact, is healthy with good turgor, Skin is pink, warm \T\ dry. normal, Rash noted that is itchy, red, on chest, right arm, left arm, right leg and left leg. 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 - Social history:: Smoking status: Patient/guardian denies using tobacco. - Ebola Screening: : Patient negative for fever greater than or equal to 101.5 degrees Fahrenheit, and additional compatible Ebola Virus Disease symptoms Patient denies exposure to infectious person Patient denies travel to an Ebola-affected area in the 21 days before illness onset No symptoms or risks identified at this time. Vital Signs: 16:40 BP 131 / 78; Pulse 85; Resp 20; Temp 97.9; Pulse Ox 99% on R/A; Weight 117.93 kg; aj Height 5 ft. 1 in. (154.94 cm); 16:40 Body Mass Index 49.13 (117.93 kg, 154.94 cm) aj ED Course: 15:21 Patient arrived in ED. mr 15:21 None, None is Private Physician. mr 16:39 Triage completed. aj 16:40 Arm band placed on left wrist. Patient placed in waiting room, Patient notified of wait aj time. 18:24 Patient's name was called from ER lobby. No response. Unable to locate patient. Will aj disposition as left without being seen by a provider. 19:47 Marcos Freeman MD is Attending Physician. aj Administered Medications: No medications were administered Outcome: 19:47 Eloped from waiting room, Time discovered patient gone: October 23, 2018 at 19:47 aj 19:47 Patient left the ED. aj Signatures: Chelly Argueta, RN RN Echo Dobbs mr
== END 2018-10-23 19:47 | disposition left against medical advice (07) ==
LOC: ER 15:18
DX: Z53.21 Procedure and treatment not carried out due to patient leaving prior to being seen by health care provider (principal)
CPT/HCPCS: 99281